=== PATIENT | male | born 1965 | race Caucasian/White ===

== ENCOUNTER 2019-10-21 00:04 | Inpatient (IN) ==
[2019-10-21] MEDS ORDERED: MULTI-VITAMIN INFUSION 10 ML, THIAMINE HCL 100 MG, FOLIC ACID 1 MG in SODIUM CHLORIDE 0... IV ONE (00:31)
[2019-10-21] MEDS ORDERED: LORazepam 2 MG/4 ML VIAL IV STA ×4 (00:31→02:23)
--- NOTE | 2019-10-21 00:33 | Emergency Department Note ---
Impression & Plan Delirium tremens, Hypertension, Alcohol withdrawal ED Provider Note Name: MYRA RIGN Age: 54 Sex: M Arrives Via: Ambulance Informant: Patient, EMS ED Provider: Alex Casarez MD Chief Complaint: Alcohol Withdrawal Impression: Delirium Tremens Alcohol Withdrawal Hypertension Medical Decision Makin yr old male alcoholic arrives for evaluation of worsening tremors and falling. Seen earlier in evening for fall and head injury from alcohol rehab f acility. CT head at that time negative and after Ativan apparently calmed down and sent back to rehab. He arrives back in ed via EMS as worsening confusion and falling. On evaluation patient is shaking, appears to be hallucinating, is tachy, is hypertensive and exhibiting evidence of DTs without seizure. Emergently given IV ativan, which had to be repeated multiple times to eventually calm patient down, along with Haldol as he was combative early on in course as I was unable to verbally deescalate nor re-direct the patient. The patient's combative behavior was risking a catastrophe. To protect the staff and the patient from harm it was necessary to chemically and physically restrain the patient. Labs without evidence that this is hepatic in nature. He continues being thrombocytopenic similar to earlier. Will hold off on repeat CT head as this was just done and negative and no report he hit head. Many repeat evaluations were done and patient still awake and periodically mumbling but no longer agitated and sats maintaining well. Prior Medical Record and Triage/Nursing Notes reviewed by Me Additional history obtained from record Differentials:Infection, hypoglycemia, electrolyte abnormalities, overdose, toxicologic, cardiac sources, intracerebral event, neurologic, trauma, as well as other pathologies. Vital Signs: reviewed and remarkable for HTN, Tachy Interventions: Saline Lock, Ativan 2mg IV x 5, Haldol 10mg IM Labs:Reviewed and remarkable for thrombocytopenia Imaging:Xray Results per my interpretation: Toe, left xray: no fracture/dislocation EKG:Per My Interpretation: Indication Withdrawal: NSR 80 bpm, qtc 459. No Ecto py. No Ischemia. Compared to EKG 10/20/19, no significant changes. Cardiac/Tele Monitoring: Cardiac Monitoring: An Order was placed for continuous cardiac monitoring. The monitor shows a rate of 80 with a normal sinus rhythm. Consults:Dr Onel Alvarez Hospitalist Plan: Disposition:Hospitalization. Condition: Fair Blood pressure:Elevated - Referred to Hospitalist Prescriptions:none PDMP: n/a History of Present Illness:Patient poor historian and difficult getting story as he is actively appearing to be withdrawing. 54 yr old male with history alcoholism who was here earlier in evening following fall and head injury. He was discharged back to Rehab facility from which he arrived. Since getting back he has been having worsening shaking, falls and confusion. Associated with multiple abrasions during falls. Patient notes his whole body hurts. He denies any new headache, neck pain, cp, sob, back pain, abdominal pain, leg swelling, nausea, vomiting, fevers, loss bowel/bladder control, nor other symptoms. Patient denies new medication use. He denies need for pain medication. He states trying to walk makes worse, but nothing makes better. Reportedly is on Folate and Thiamine at rehab facility. Per staff he has been at [facility] for 5 to 6 days. ROS: See above HPI for pertinent positives & negatives. A total of 10 systems reviewed and were otherwise negative. Past Medical History:Alcoholism, HTN, Insomnia Past Surgical History:Unknown - patientwithdrawing and poor historian Family History:Unknown - patient poor historian Social History:Currently in alcohol rehab, smoker, no reported drugs, unknown if employed. Home Medications:See Below Allergies:Pollen, Acetaminophen Vitals:Blood Pressure: 175/114, Pulse 89, RR 18, T 37C, O2 95% on RA Physical Exam: GENERAL: Patient is confused appearing and in minimal distress. Diffuse tremors/shakes, trying to get out of room, very unsteady on feet EYES: No scleral icterus, unremarkable pupils. ENT: Mucous membranes moist, no nasal congestion. NECK: No masses appreciated, nomeningismus, trachea is midline. RESPIRATORY: No dyspnea. Clear to auscultation and equal bilaterally. No wheeze, no rhonchi. CARDIOVASCULAR: Regular rate and rhythm.No murmurs, rubs, gallops appreciated. GASTROINTESTINAL: Abdomen soft, non-tender, no peritonitis.Bowel sounds positive.No masses appreciated. BACK: No midline tenderness, no CVA tenderness EXTREMITIES: Normal motion all extremities, no cyanosis, no edema. NEUROLOGIC: Confused, unclear if oriented, no acute motor or sensory deficits, no focal weakness, cranial nerves grossly intact. SKIN: No rash, no jaundice, no diaphoresis. PSYCH: Confused GCS: 15 ED Course: Times/Reassessments: multiple many evals, gradually calming down Critical Care: I have personally spent 45 minutes of critical care time in the direct management of this patient. Acute alcohol withdrawal with delirium. This was a life/limb threatening event. This 45 minutes is in excess of all separately billable procedures. 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 Required: No Beliefs That Will Affect Care: None Current Living Situation: Spouse current occupational status: employed current occupation: [employer] Other Information That Helps Us Care for You: No Feels Safe at Home: Yes Safety Concerns: Feels Safe At This Time Smoking Status: Current every day smoker Tobacco Type: cigarettes ; Cigarettes Per Day: 40 ; Do You Dip or Chew Tobacco: No ; Tobacco Cessation Education Requested by Patient: No Hx Alcohol Use: Yes Alcohol type: beer Hx Substance Use: No Allergies Allergies Allergy/AdvReac Type Severity Reaction Status Date / Time pollen extracts Allergy Intermediate ITCHY, Verified 10/21/19 01:09 WATERY EYES, SNEEZING, CONGESTION acetaminophen [From Tylenol] AdvReac Severe PER PT Verified 10/20/19 16:21 "LIVER DAMAGE" UNABLE TO TAKE Home Meds Home Medications Medication Instructions Recorded Confirmed amlodipine 5 mg PO QAM 10/20/19 10/21/19 atorvastatin [Lipitor] 40 mg PO QAM 10/20/19 10/21/19 diazepam [Valium] 10 mg PO TID 10/20/19 10/21/19 diazepam [Valium] See Rx Instructions .ROUTE .COMPLEX 10/20/19 10/21/19 doxepin 50 mg PO HS 10/20/19 10/21/19 escitalopram oxalate [Lexapro] 20 mg PO QAM 10/20/19 10/21/19 folic acid 1 mg PO DAILY 10/20/19 10/21/19 gabapentin [Neurontin] 300 mg PO BID 10/20/19 10/21/19 lisinopril 20 mg PO QAM 10/20/19 10/21/19 multivitamin 1 tab PO DAILY 10/20/19 10/21/19 thiamine HCl (vitamin B1) 100 mg PO DAILY 10/20/19 10/21/19 meloxicam [Mobic] 15 mg PO DAILY 10/21/19 10/21/19 Previous Rx's Medication Instructions Recorded lactulose 20 gm PO TID #30 ea 10/20/19 Results & Data (ED) Vital Signs Vital Signs - 24 hr 10/21/19 00:12 10/21/19 00:56 10/21/19 02:00 Temperature 37 C Temperature Source Oral Pulse Rate 89 Pulse Rate [Finger] 85 97 H Respiratory Rate 18 20 20 Respiratory Effort / Characteristics Non-Labored Spontaneous Non-Labored Spontaneous Respiratory Depth Normal Normal Blood Pressure 175/114 H Blood Pressure [Right Arm] 157/100 H 155/88 H Blood Pressure Mean 134 Blood Pressure Mean [Right Arm] 119 110 Pulse Oximetry 95 95 100 Oxygen Delivery Method Room Air Room Air Room Air Sepsis Recent Fever Within 48 Hours No Sepsis New/Unexplained Change in Mental Status No Sepsis Action Taken by Nursing No Action Required 10/21/19 03:00 Temperature Temperature Source Pulse Rate Pulse Rate [Finger] 89 Respiratory Rate 20 Respiratory Effort / Characteristics Respiratory Depth Blood Pressure Blood Pressure [Right Arm] 154/93 H Blood Pressure Mean Blood Pressure Mean [Right Arm] 113 Pulse Oximetry 99 Oxygen Delivery Method Room Air Sepsis Recent Fever Within 48 Hours Sepsis New/Unexplained Change in Mental Status Sepsis Action Taken by Nursing Laboratory Data Result diagrams: 10/21/19 00:46 10/21/19 00:46 Lab Results 10/21/19 10/21/19 10/21/19 Range/Units 00:46 00:46 00:46 WBC 4.01 L (4.8-10.8) K/uL RBC 4.66 L (4.7-6.1) M/uL Hgb 14.8 (14.0-18.0) g/dL Hct 42.6 (42-52) % MCV 91.4 (80-100) fL MCH 31.8 (25-34) pg MCHC 34.7 (32-36) g/dL RDW Std Deviation 51.6 H (36.4-46.3) fL RDW Coeff of Usama 15.4 H (11.5-14.5) % Plt Count 76 L (130-400) K/uL MPV 10.6 H (7.4-10.4) fL Immature Gran % (Auto) 0.0 % Neut % (Auto) 51.7 % Lymph % (Auto) 30.9 % [place] % (Auto) 12.2 % Eos % (Auto) 5.0 % Baso % (Auto) 0.2 % Neut # (Auto) 2.07 (1.4-6.5) K/uL Lymph # (Auto) 1.24 (1.2-3.4) K/uL [place] # (Auto) 0.49 (0.11-0.59) K/uL Eos # (Auto) 0.20 (0-0.5) K/uL Baso # (Auto) 0.01 (0-0.2) K/uL Immature Gran # (Auto) 0.00 (0.00-0.02) K/uL Giant Platelets 2+ Sodium 136 (136-145) mmol/L Potassium 3.1 L (3.5-5.1) mmol/L Chloride 105 (98-107) mmol/L Carbon Dioxide 22 (21-32) mmol/L Anion Gap 9.0 (3-11) BUN 9 D (7-18) mg/dl Creatinine 0.82 D (0.6-1.4) mg/dl Est Cr Clr Drug Dosing 77.7 ml/min Est GFR ( Amer) 114.6 Est GFR (Non-Af Amer) 98.9 BUN/Creatinine Ratio 11.4 (10-20) Glucose 75 (70-99) mg/dl Lactate (0.4-2.0) mmol/L Calcium 9.0 (8.5-10.1) mg/dl Magnesium 2.0 (1.8-2.4) mg/dl Total Bilirubin 1.6 H (0.2-1) mg/dl Direct Bilirubin 0.5 H (0-0.2) mg/dl AST 173 H (15-37) U/L ALT 100 H (12-78) U/L Alkaline Phosphatase 70 (45-117) U/L Ammonia (11-32) umol/L Total Creatine Kinase 734 H (39-308) U/L Troponin I < 0.015 (0-0.045) ng/ml Total Protein 7.8 (6.4-8.2) gm/dl Albumin 3.8 (3.4-5.0) gm/dl Urine Color Urine Appearance (Clear) Urine pH (4.5-7.5) Ur Specific [place] (1.000-1.030) Urine Protein (Negative) Urine Glucose (UA) (Negative) Urine Ketones (Negative) Urine Blood (Negative) Urine Nitrite (Negative) Urine Bilirubin (Negative) Urine Urobilinogen (Negative) Ur Leukocyte Esterase (Negative) Urine Opiates Screen (Neg) Ur Methadone, Qual (Neg) Urine Barbiturates (Neg) Ur Phencyclidine (PCP) (Neg) U Amphetamin/Meth Scrn (Neg) MDMA (Ecstasy) Screen (Neg) U Benzodiazepines Scrn (Neg) Ur Cocaine Metabolite (Neg) U Marijuana (THC) Screen (Neg) Ethyl Alcohol mg/dL < 3.0 (0-3) mg/dl 10/21/19 10/21/19 10/21/19 Range/Units 00:46 00:46 01:40 WBC (4.8-10.8) K/uL RBC (4.7-6.1) M/uL Hgb (14.0-18.0) g/dL Hct (42-52) % MCV (80-100) fL MCH (25-34) pg MCHC (32-36) g/dL RDW Std Deviation (36.4-46.3) fL RDW Coeff of Usama (11.5-14.5) % Plt Count (130-400) K/uL MPV (7.4-10.4) fL Immature Gran % (Auto) % Neut % (Auto) % Lymph % (Auto) % [place] % (Auto) % Eos % (Auto) % Baso % (Auto) % Neut # (Auto) (1.4-6.5) K/uL Lymph # (Auto) (1.2-3.4) K/uL [place] # (Auto) (0.11-0.59) K/uL Eos # (Auto) (0-0.5) K/uL Baso # (Auto) (0-0.2) K/uL Immature Gran # (Auto) (0.00-0.02) K/uL Giant Platelets Sodium (136-145) mmol/L Potassium (3.5-5.1) mmol/L Chloride (98-107) mmol/L Carbon Dioxide (21-32) mmol/L Anion Gap (3-11) BUN (7-18) mg/dl Creatinine (0.6-1.4) mg/dl Est Cr Clr Drug Dosing ml/min Est GFR ( Amer) Est GFR (Non-Af Amer) BUN/Creatinine Ratio (10-20) Glucose (70-99) mg/dl Lactate 1.4 (0.4-2.0) mmol/L Calcium (8.5-10.1) mg/dl Magnesium (1.8-2.4) mg/dl Total Bilirubin (0.2-1) mg/dl Direct Bilirubin (0-0.2) mg/dl AST (15-37) U/L ALT (12-78) U/L Alkaline Phosphatase (45-117) U/L Ammonia 32.0 (11-32) umol/L Total Creatine Kinase (39-308) U/L Troponin I (0-0.045) ng/ml Total Protein (6.4-8.2) gm/dl Albumin (3.4-5.0) gm/dl Urine Color Yellow Urine Appearance Clear (Clear) Urine pH 6.5 (4.5-7.5) Ur Specific [place] 1.014 (1.000-1.030) Urine Protein Negative (Negative) Urine Glucose (UA) Negative (Negative) Urine Ketones 1+ H (Negative) Urine Blood Negative (Negative) Urine Nitrite Negative (Negative) Urine Bilirubin Negative (Negative) Urine Urobilinogen Negative (Negative) Ur Leukocyte Esterase Negative (Negative) Urine Opiates Screen (Neg) Ur Methadone, Qual (Neg) Urine Barbiturates (Neg) Ur Phencyclidine (PCP) (Neg) U Amphetamin/Meth Scrn (Neg) MDMA (Ecstasy) Screen (Neg) U Benzodiazepines Scrn (Neg) Ur Cocaine Metabolite (Neg) U Marijuana (THC) Screen (Neg) Ethyl Alcohol mg/dL (0-3) mg/dl 10/21/19 Range/Units 01:40 WBC (4.8-10.8) K/uL RBC (4.7-6.1) M/uL Hgb (14.0-18.0) g/dL Hct (42-52) % MCV (80-100) fL MCH (25-34) pg MCHC (32-36) g/dL RDW Std Deviation (36.4-46.3) fL RDW Coeff of Usama (11.5-14.5) % Plt Count (130-400) K/uL MPV (7.4-10.4) fL Immature Gran % (Auto) % Neut % (Auto) % Lymph % (Auto) % [place] % (Auto) % Eos % (Auto) % Baso % (Auto) % Neut # (Auto) (1.4-6.5) K/uL Lymph # (Auto) (1.2-3.4) K/uL [place] # (Auto) (0.11-0.59) K/uL Eos # (Auto) (0-0.5) K/uL Baso # (Auto) (0-0.2) K/uL Immature Gran # (Auto) (0.00-0.02) K/uL Giant Platelets Sodium (136-145) mmol/L Potassium (3.5-5.1) mmol/L Chloride (98-107) mmol/L Carbon Dioxide (21-32) mmol/L Anion Gap (3-11) BUN (7-18) mg/dl Creatinine (0.6-1.4) mg/dl Est Cr Clr Drug Dosing ml/min Est GFR ( Amer) Est GFR (Non-Af Amer) BUN/Creatinine Ratio (10-20) Glucose (70-99) mg/dl Lactate (0.4-2.0) mmol/L Calcium (8.5-10.1) mg/dl Magnesium (1.8-2.4) mg/dl Total Bilirubin (0.2-1) mg/dl Direct Bilirubin (0-0.2) mg/dl AST (15-37) U/L ALT (12-78) U/L Alkaline Phosphatase (45-117) U/L Ammonia (11-32) umol/L Total Creatine Kinase (39-308) U/L Troponin I (0-0.045) ng/ml Total Protein (6.4-8.2) gm/dl Albumin (3.4-5.0) gm/dl Urine Color Urine Appearance (Clear) Urine pH (4.5-7.5) Ur Specific [place] (1.000-1.030) Urine Protein (Negative) Urine Glucose (UA) (Negative) Urine Ketones (Negative) Urine Blood (Negative) Urine Nitrite (Negative) Urine Bilirubin (Negative) Urine Urobilinogen (Negative) Ur Leukocyte Esterase (Negative) Urine Opiates Screen Neg (Neg) Ur Methadone, Qual Neg (Neg) Urine Barbiturates Neg (Neg) Ur Phencyclidine (PCP) Neg (Neg) U Amphetamin/Meth Scrn Neg (Neg) MDMA (Ecstasy) Screen Neg (Neg) U Benzodiazepines Scrn Pos H (Neg) Ur Cocaine Metabolite Neg (Neg) U Marijuana (THC) Screen Pos H (Neg) Ethyl Alcohol mg/dL (0-3) mg/dl Administered Medications Lorazepam (Ativan) 2 mg in 4 mls @ 4 mls/min IV UD PRN; Protocol PRN Reason: EtOH Withdrawl AWSS Score 8,9 Stop: 11/20/19 03:33 Last Admin: 10/21/19 04:55 Dose: 4 mls/min Documented by: [id number] Discontinued Medications Gabapentin (Neurontin) 1,200 mg PO NOW STA Stop: 10/21/19 03:02 Last Admin: 10/21/19 04:03 Dose: 1,200 mg Documented by: [id number] Haloperidol Lactate (Haldol) 10 mg IM NOW STA Stop: 10/21/19 01:41 Last Admin: 10/21/19 01:45 Dose: 10 mg Documented by: [id number] Lorazepam (Ativan) 2 mg in 4 mls @ 4 mls/min IV NOW STA Stop: 10/21/19 00:32 Last Admin: 10/21/19 00:45 Dose: 4 mls/min Documented by: [id number] Multivitamins 10 ml/ Thiamine HCl 100 mg/ Folic Acid 1 mg/Sodium Chloride 1,011.2 mls @ 1,011.2 mls/hr IV .Q1H ONE Stop: 10/21/19 01:30 Last Infusion: 10/21/19 02:09 Dose: 0 mls/hr Documented by: [id number] Admin: 10/21/19 00:50 Dose: 1,011.2 mls/hr Documented by: [id number] Lorazepam (Ativan) 2 mg in 4 mls @ 4 mls/min IV NOW STA Stop: 10/21/19 01:18 Last Admin: 10/21/19 01:21 Dose: 4 mls/min Documented by: [id number] Lorazepam (Ativan) 2 mg in 4 mls @ 4 mls/min IV NOW STA Stop: 10/21/19 01:41 Last Admin: 10/21/19 01:45 Dose: 4 mls/min Documented by: [id number] Lorazepam (Ativan) 2 mg in 4 mls @ 4 mls/min IV NOW STA Stop: 10/21/19 02:24 Last Admin: 10/21/19 02:42 Dose: 4 mls/min Documented by: [id number] Sodium Chloride (Nss 1000ml) 1,000 mls @ 999 mls/hr IV .Q1H1M ONE Stop: 10/21/19 03:23 Last Infusion: 10/21/19 03:46 Dose: 0 mls/hr Documented by: [id number] Admin: 10/21/19 02:45 Dose: 999 mls/hr Documented by: [id number] Potassium Chloride (Klor-Con Pwd) 40 meq PO NOW STA Stop: 10/21/19 02:58 Last Admin: 10/21/19 04:04 Dose: 40 meq Documented by: [id number] Discharge Plan Visit Data *Final* Discharge Date/Time: 10/21/19 04:19 Chief Complaint: Fall Stated Complaint: Fall, abnormal Labs ED Provider: Alex Casarez Discharge Problem: Delirium tremens, Hypertension, Alcohol withdrawal Patient Disposition: Admitted As Inpatient Discharge Instructions Interventions: ED Discharge Assessment Last Done: 10/21/19 04:19 Discharge Problem: Hypertension Qualifiers: Hypertension type: essential hypertension Qualified Code(s): I10 - Essential (primary) hypertension Alcohol withdrawal Qualifiers: Complication of substance-induced condition: with delirium Qualified Code(s): F10.231 - Alcohol dependence with withdrawal delirium
[2019-10-21 01:07] LABS: Hematocrit (blood only) 42.6 % (42-52); Hemoglobin 14.8 g/dL (14.0-18.0); Mean Corpuscular Hemoglobin 31.8 pg (25-34); Mean Corpuscular Hgb Conc 34.7 g/dL (32-36); Mean Corpuscular Volume 91.4 fL (80-100); RDW Coefficient of Variation 15.4 % (11.5-14.5); RDW Standard Deviation 51.6 fL (36.4-46.3); Red Blood Count 4.66 M/uL (4.7-6.1); White Blood Count 4.01 K/uL (4.8-10.8)
[2019-10-21 01:11] LABS: Mean Platelet Volume 10.6 fL (7.4-10.4); Platelet Count 76 K/uL (130-400)
[2019-10-21 01:32] LABS: Basophils # (auto) 0.01 K/uL (0-0.2); Basophils % (auto) 0.2 %; Giant Platelets 2+; Lymphocytes # (auto) 1.24 K/uL (1.2-3.4); Lymphocytes % (auto) 30.9 %; Monocytes # (auto) 0.49 K/uL (0.11-0.59); Monocytes % (auto) 12.2 %; Neutrophils # (auto) 2.07 K/uL (1.4-6.5); Neutrophils % (auto) 51.7 %
[2019-10-21 01:35] LABS: Alanine Aminotransferase 100 U/L (12-78); Albumin Level 3.8 gm/dl (3.4-5.0); Alkaline Phosphatase 70 U/L (45-117); Aspartate Aminotransferase 173 U/L (15-37); BUN Creatinine Ratio 11.4 (10-20); Bilirubin Direct 0.5 mg/dl (0-0.2); Bilirubin,Total 1.6 mg/dl (0.2-1); Blood Urea Nitrogen 9 mg/dl (7-18); Carbon Dioxide 22 mmol/L (21-32); Chloride 105 mmol/L (98-107); Creatine Kinase 734 U/L (39-308); Creatinine Clr Calc Pharmacy 77.7 ml/min; Est GFR (African American) 114.6; Est GFR (Non-African American) 98.9; Glucose 75 mg/dl (70-99); Potassium 3.1 mmol/L (3.5-5.1); Sodium 136 mmol/L (136-145); Total Protein 7.8 gm/dl (6.4-8.2); Troponin I < 0.015 ng/ml (0-0.045)
[2019-10-21] MEDS ORDERED: HALOPERIDOL LACTATE 5 MG/ML 1 ML VIAL IM STA (01:40)
[2019-10-21 01:56] LABS: Appearance Urine Clear (Clear); Bilirubin Urine Negative (Negative); Blood Urine Negative (Negative); Color Urine Yellow; Glucose Urine UA Negative (Negative); Ketones Urine 1+ (Negative); Leukocyte Esterase Urine Negative (Negative); Nitrite Urine Negative (Negative); Protein Urine Negative (Negative); Specific Gravity Urine 1.014 (1.000-1.030); Urobilinogen Urine Negative (Negative); pH Urine 6.5 (4.5-7.5)
[2019-10-21 02:15] LABS: Amphetamines+Metham, Urine Neg (Neg); Barbiturates, Urine Neg (Neg); Benzodiazepine, Urine Pos (Neg); Cocaine, Urine Neg (Neg); MDMA (Ecstacy), Urine Neg (Neg); Methadone, Urine Neg (Neg); Opiate, Urine Neg (Neg); Phencyclidine, Urine Neg (Neg)
[2019-10-21] MEDS ORDERED: SODIUM CHLORIDE 0.9% 1000ML 1,000 ML IV ONE (02:23)
[2019-10-21] MEDS ORDERED: POTASSIUM CHLORIDE PWD 20 MEQ PACK PO STA (02:57)
[2019-10-21] MEDS ORDERED: GABAPENTIN 600 MG TAB PO STA (03:01)
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
[2019-10-21] MEDS ORDERED: ATIVAN IV ALCOHOL WITHDRAWL IV PRN (03:34)
[2019-10-21] MEDS ORDERED: LORazepam 3 MG/6 ML VIAL IV PRN (03:34)
[2019-10-21] MEDS ORDERED: LORazepam 2 MG/4 ML VIAL IV PRN (03:34)
[2019-10-21] MEDS ORDERED: LORazepam 1 MG/2 ML VIAL IV PRN (03:34)
[2019-10-21] MEDS ORDERED: GABAPENTIN 1200MG ALCOHOL WITHDRAWAL LOAD PO STA (04:39)
[2019-10-21] MEDS ORDERED: PROMETHAZINE HCL 12.5 MG in SODIUM CHLORIDE 0.9% 50 ML IV PRN (04:39)
[2019-10-21] MEDS ORDERED: OXYCODONE HCL IR 5 MG TAB (IMMEDIATE RELEASE) PO PRN (04:39)
[2019-10-21] MEDS ORDERED: ACETAMINOPHEN 325 MG TAB PO PRN (04:39)
[2019-10-21] MEDS ORDERED: IPRATROPIUM BROMIDE NEB SOLN 0.02% 2.5 ML VIAL INH PRN (05:15)
[2019-10-21] MEDS ORDERED: LEVALBUTEROL 1.25MG/0.5ML NEB INH PRN (05:15)
[2019-10-21] MEDS ORDERED: XOPENEX/ATROVENT 1.25mg/0.5MG NEB COMBO NEB PRN (05:15)
[2019-10-21] MEDS ORDERED: POTASSIUM CHLORIDE 40 MEQ in SODIUM CHLORIDE 0.9% 1000ML 1,000 ML IV ONE (05:16)
[2019-10-21] MEDS: lisinopriL 20 MG TAB PO SCH ×2 (07:12→07:45)
[2019-10-21] MEDS: LACTULOSE SYRUP 20 GM/30 ML UDC PO SCH ×2 (07:45→20:29)
[2019-10-21] MEDS: MULTIVITAMIN TAB PO SCH (07:45)
[2019-10-21] MEDS: ESCITALOPRAM OXALATE 20 MG TAB PO SCH (07:45)
[2019-10-21] MEDS: THIAMINE HCL 100 MG TAB PO SCH (07:45)
[2019-10-21] MEDS: FOLIC ACID 1 MG TAB PO SCH (07:45)
[2019-10-21] MEDS: GABAPENTIN 600 MG TAB PO SCH ×3 (07:46→23:04)
[2019-10-21] MEDS: AMLODIPINE BESYLATE 5 MG TAB PO SCH (07:46)
--- NOTE | 2019-10-21 08:28 | XRay Report ---
XR chest 1V portable CLINICAL HISTORY: wheeze COMPARISON STUDY: No previous studies for comparison. FINDINGS: Lung volumes are normal. Lungs are clear. There is no pneumothorax or pleural effusion. Car diac size is normal. Mediastinal contours are normal. There is no evidence for pulmonary edema. IMPRESSION: No acute cardiopulmonary findings. ACT 112: Negative or not required by law. Electronically signed by: Davon Raines M.D. 10/21/2019 8:26 AM
--- NOTE | 2019-10-21 08:58 | XRay Report ---
XR toe(s) LT min 2V CLINICAL HISTORY: left great toe abrasion COMPARISON: None FINDINGS: Alignment of the left first toe is anatomic. There is no acute fracture. No osseous lesion is noted. There is mild osteoarthritis of the left first metatarsophalangeal joint. IMPRESSION: No acute fracture or dislocation within the left first toe. ACT 112: Negative or not required by law. Electronically signed by: Davon Raines M.D. 10/21/2019 8:57 AM
[2019-10-21] MEDS ORDERED: LACTULOSE SYRUP 20 GM/30 ML UDC PO SCH (09:00)
[2019-10-21] MEDS ORDERED: lisinopriL 20 MG TAB PO SCH (09:00)
[2019-10-21] MEDS ORDERED: levETIRAcetam 500 MG TAB PO SCH (09:00)
[2019-10-21] MEDS ORDERED: LORazepam 0.5 MG/1 ML VIAL IV PRN (10:41)
--- NOTE | 2019-10-21 10:53 | Ultrasound Report ---
US liver CLINICAL HISTORY: Abnormal liver function tests. COMPARISON STUDY: No previous studies for comparison. FINDINGS: This exam is compromised by suboptimal penetration. Hepatic echogenicity is increased. A hy poechoic focus adjacent to the gallbladder favors fatty sparing. There is no biliary ductal dilatatio n. The common bile duct measures 5 mm in caliber. The pancreas body is normal. Head and tail are part ially obscured. There are no gallstones. There is no gallbladder wall thickening. No right hydronephr osis is present. IMPRESSION: 1. Increased hepatic echogenicity suggestive of fatty infiltration. Hypoechoic focus adjacent to the gallbladder fossa which favors fatty sparing. Exam mildly compromised by suboptimal penetration. 2. No gallstones or biliary ductal dilatation. ACT 112: Negative or not required by law. Electronically signed by: Davon Raines M.D. 10/21/2019 10:51 AM
[2019-10-21] MEDS: levETIRAcetam 500 MG in 0.9 % SODIUM CHLORIDE 100 ML IV SCH ×2 (10:54→22:37)
--- NOTE | 2019-10-21 14:39 | Gastrointestinal Consultation ---
Date of Consultation October 21, 2019 Assessment & Plan (1) Alcohol withdrawal: (2) Abnormal LFTs: (3) Thrombocytopenia: (4) Fatty liver: ETOH withdrawal on treatment, his LFTs and labs could certainly indicate the beginning of cirrhosis, would benefit from a liver biopsy as an outpatient. Recs: 1. supportive care, continue ETOH withdrawal treatment 2. will need outpatient liver biopsy 3.will need screening colonoscopy as an outpatient 4.follow up with me in the office in 1-2 weeks after discharge Thank you for allowing me to participate in the care of this patient History of Present Illness Attending Physician: Arvin Lozano MD 54 yo male with hx ETOH abuse here with ETOH withdrawal. US showed fatty liver, labs showing thromobocytopenia and transaminitis. No evidence for biliary disease. Patient is on ETOH withdrawal tx protocol and has been having tremors, not awake enough to communicate at this time. Was in [facility] rehab earlier for ETOH abuse. labs reviewed. Allergies Allergy/AdvReac Type Severity Reaction Status Date / Time pollen extracts Allergy Intermediate ITCHY, Verified 10/21/19 01:09 WATERY EYES, SNEEZING, CONGESTION acetaminophen [From Tylenol] AdvReac Severe PER PT Verified 10/20/19 16:21 "LIVER DAMAGE" UNABLE TO TAKE Home Medications Home Medications Medication Instructions Recorded Confirmed Type amlodipine 5 mg PO QAM 10/20/19 10/21/19 History atorvastatin [Lipitor] 40 mg PO QAM 10/20/19 10/21/19 History diazepam [Valium] 10 mg PO TID 10/20/19 10/21/19 History diazepam [Valium] See Rx Instructions .ROUTE .COMPLEX 10/20/19 10/21/19 History doxepin 50 mg PO HS 10/20/19 10/21/19 History escitalopram oxalate [Lexapro] 20 mg PO QAM 10/20/19 10/21/19 History folic acid 1 mg PO DAILY 10/20/19 10/21/19 History gabapentin [Neurontin] 300 mg PO BID 10/20/19 10/21/19 History lactulose 20 gm PO TID #30 ea 10/20/19 10/21/19 Rx lisinopril 20 mg PO QAM 10/20/19 10/21/19 History multivitamin 1 tab PO DAILY 10/20/19 10/21/19 History thiamine HCl (vitamin B1) 100 mg PO DAILY 10/20/19 10/21/19 History meloxicam [Mobic] 15 mg PO DAILY 10/21/19 10/21/19 History Patient History Medical History Hypertension Insomnia Social History Preferred Language: Kiswahili Communication Ability: Effective Windsurfing Instructor Required: No Beliefs That Will Affect Care: None Current Living Situation: Spouse current occupational status: employed current occupation: [employer] Other Information That Helps Us Care for You: No Feels Safe at Home: Yes Safety Concerns: Feels Safe At This Time Smoking Status: Current every day smoker Tobacco Type: cigarettes ; Cigarettes Per Day: 40 ; Do You Dip or Chew Tobacco: No ; Tobacco Cessation Education Requested by Patient: No Hx Alcohol Use: Yes Alcohol type: beer Hx Substance Use: No Review of Systems Constitutional: no fever, no chills and no weight loss Eyes: as per Subjective / HPI Ear, Nose, Mouth, Throat: as per Subjective / HPI Respiratory: no dyspnea and no dyspnea on exertion Cardiovascular: no chest pain and no palpitations Gastrointestinal: as per Subjective / HPI Musculoskeletal: no joint pain and no swelling Integumentary: no rash and no lesions Neurologic: no numbness and no paresthesia Psychiatric: no depression and no anxiety Endocrine: no fatigue Hematologic / Lymphatic: no easy bleeding and no easy bruising Physical Exam Constitutional: WD/WN, vitals as above Eyes: EOM intact bilaterally Neck: normal visual inspection Respiratory: normal respiratory effort, lungs clear to auscultation Cardiovascular: RRR, no murmur, no edema Gastrointestinal (Abdomen): Inspection/Auscultation: abdomen normal to inspection; abdomen not distended Percussion/Palpation: abdomen soft; abdomen nontender and no hepatosplenomegaly Musculoskeletal: Extremities: no cyanosis Gait: normal gait Skin: no rashes, warm and dry Neurologic: moves all extremities Psychiatric: A+Ox3, euthymic affect Results & Data ([facility]) Vital Signs (Past 12 Hours) Vital Signs Temp Pulse Pulse Pulse Resp BP Pulse Ox 10/21/19 11:36 36.7 C 79 18 131/88 94 10/21/19 08:00 78 10/21/19 07:22 36.4 C L 72 16 152/89 H 93 10/21/19 04:39 10/21/19 04:35 36.4 C L 94 H 22 162/91 H 96 10/21/19 04:00 99 H 24 157/96 H 100 10/21/19 03:00 89 20 154/93 H 99 Pulse Ox 10/21/19 11:36 10/21/19 08:00 10/21/19 07:22 10/21/19 04:39 96 10/21/19 04:35 10/21/19 04:00 10/21/19 03:00 PG Care Time/CCT Total # of Minutes Spent Total Time Spent with Patient: Total time spent is greater than 50% in coordination of care (as documented) at patient's floor/unit and/or counseling patient: Coding Level of Care Code 04235 Inpt Consult Level 4 Diagnoses Alcohol withdrawal F10.239 Abnormal LFTs R94.5 Thrombocytopenia D69.6 Fatty liver K76.0
--- NOTE | 2019-10-21 19:19 | Communication Note ---
Date of Service: October 21, 2019 Chart reviewed Patient seen at the bedside Patient is mostly sleeping, awakens occasionally, answers some questions Denies pain, shortness of breath Review systems difficult to assess due to cognitive status Patient is lethargic Just received Ativan in the ER Not in distress, or muscle use Clear breath sounds bilaterally no crackles or wheezes Normal rate regular rhythm No leg edema Positive skin tear right great toe next All labs reviewed Alcohol withdrawal Continue alcohol withdrawal taper, gabapentin protocol taper Alcoholic liver cirrhosis, with elevated ammonia Ammonia level normal GI will be consulted Arvin Lozano MD
[2019-10-22 06:20] LABS: Hematocrit (blood only) 42.5 % (42-52); Hemoglobin 14.8 g/dL (14.0-18.0); Mean Corpuscular Hemoglobin 32.5 pg (25-34); Mean Corpuscular Hgb Conc 34.8 g/dL (32-36); Mean Corpuscular Volume 93.2 fL (80-100); RDW Coefficient of Variation 15.6 % (11.5-14.5); RDW Standard Deviation 53.3 fL (36.4-46.3); Red Blood Count 4.56 M/uL (4.7-6.1); White Blood Count 3.91 K/uL (4.8-10.8)
[2019-10-22 06:23] LABS: Mean Platelet Volume 11.4 fL (7.4-10.4); Platelet Count 82 K/uL (130-400)
[2019-10-22 06:38] LABS: Basophils # (auto) 0.01 K/uL (0-0.2); Basophils % (auto) 0.3 %; Eosinophils # (auto) 0.21 K/uL (0-0.5); Eosinophils % (auto) 5.4 %; Giant Platelets 3+; Immature Granulocytes # (auto) 0.01 K/uL (0.00-0.02); Immature Granulocytes % (auto) 0.3 %; Lymphocytes # (auto) 1.13 K/uL (1.2-3.4); Lymphocytes % (auto) 28.9 %; Monocytes % (auto) 10.2 %; Neutrophils # (auto) 2.15 K/uL (1.4-6.5); Neutrophils % (auto) 54.9 %
[2019-10-22 06:54] LABS: Albumin Level 3.4 gm/dl (3.4-5.0); BUN Creatinine Ratio 10.5 (10-20); Calcium 8.7 mg/dl (8.5-10.1); Creatinine Clr Calc Pharmacy 102.7 ml/min; Est GFR (African American) 128.5; Est GFR (Non-African American) 110.9; Potassium 3.4 mmol/L (3.5-5.1)
[2019-10-22 06:57] LABS: Albumin Globulin Ratio 0.9 (0.9-2); Globulin 3.9 gm/dl (2.5-4.0); Total Protein 7.3 gm/dl (6.4-8.2)
--- NOTE | 2019-10-22 07:47 | Electrocardiogram Report ---
Test Reason : Blood Pressure : / mmHG Vent. Rate : 080 BPM Atrial Rate : 080 BPM P-R Int : 160 ms QRS Dur : 096 ms QT Int : 398 ms P-R-T Axes : 071 -39 048 degrees QTc Int : 459 ms Normal sinus rhythm Left axis deviation Septal infarct , age undetermined Abnormal ECG When compared with ECG of 20-OCT-2019 16:00, Septal infarct is now Present Confirmed by Olu Tobar ([id number]) on 10/22/2019 7:46:58 AM Referred By: REFERRED SELF Confirmed By:Olu Tobar
[2019-10-22] MEDS: LACTULOSE SYRUP 20 GM/30 ML UDC PO SCH ×2 (08:10→19:52)
[2019-10-22] MEDS: levETIRAcetam 500 MG TAB PO SCH ×2 (08:11→19:51)
[2019-10-22] MEDS: AMLODIPINE BESYLATE 5 MG TAB PO SCH (08:11)
[2019-10-22] MEDS: MULTIVITAMIN TAB PO SCH (08:11)
[2019-10-22] MEDS: FOLIC ACID 1 MG TAB PO SCH (08:11)
[2019-10-22] MEDS: ESCITALOPRAM OXALATE 20 MG TAB PO SCH (08:11)
[2019-10-22] MEDS: GABAPENTIN 600 MG TAB PO SCH ×2 (08:11→15:50)
[2019-10-22] MEDS: THIAMINE HCL 100 MG TAB PO SCH (08:11)
[2019-10-22] MEDS: lisinopriL 20 MG TAB PO SCH (08:11)
[2019-10-22] MEDS ORDERED: POTASSIUM CHLORIDE 20 MEQ TABCR PO STA (08:30)
--- NOTE | 2019-10-22 13:11 | Hospitalist Progress Note ---
Date of Service October 22, 2019 Assessment & Plan (1) Alcohol withdrawal: 55-year-old male with history of hypertension, COPD, anxiety, alcoholism, smoking, traumatic brain injury with seizure, Presenting with alcohol withdrawal symptoms next Alcohol withdrawal, alcoholism Patient was admitted to [facility] alcohol rehab last Wednesday Noted to have symptoms of possible alcohol withdrawal Placed on alcohol drip protocol, including gabapentin taper Patient is awake alert oriented x3 today No signs of overt withdrawal Continue gabapentin taper Monitor closely Status post falls, dizziness Patient reports dizziness, described as room spinning around him, [facility], leading to multiple episodes of falls Denies any pain today, dizziness also resolved CT head: No acute process Likely multifactorial: Alcohol withdrawal, elevated ammonia, dehydration Patient on alcohol drip protocol, management of elevated ammonia level, also received IV fluids Will need PT and OT evaluation Monitor closely Abnormal LFTs, thrombocytopenia, hyperammonemia possible alcoholic cirrhosis LFTs stable, platelet count stable Ammonia level improved Continue lactulose 20 mg twice daily GI consulted, appreciate the recommendations Supportive care for now Will need outpatient liver biopsy Will need screening colonoscopy as an outpatient Follow-up with GI Dr. Ferreira in 1 to 2 weeks post discharge Hypertension Continue lisinopril and amlodipine Monitor closely COPD Not in exacerbation Continue to monitor Seizure disorder, history of traumatic brain injury on outpatient Keppra Rx, ? Compliance Continue Keppra 500 mg twice a day Anxiety/mood disorder Patient denies anxiety or depression symptoms Smoker Severity cessation Declines nicotine patch DVT prophylaxis. SCDs RE thrombocytopenia Full code Disposition Pending PT and OT evaluation ordered Possible [facility] Admission and Anticipated Discharge Date Admission Date: October 21, 2019 Subjective Follow-up for alcohol withdrawal, elevated ammonia level, possible alcohol liver cirrhosis No acute events overnight per RN Jeannette Seen sitting up in bed, comfortable, not in distress, awake and alert, oriented x3 Not in distress States he feels improved today compared to yesterday Denies headache, dizziness, neurologic symptoms Denies chest pain, shortness of breath, palpitations No abdominal pain, nausea Denies tremors, anxiety, hallucinations No other symptoms Review of Systems Review of Systems: All systems reviewed & are unremarkable except as noted in HPI & below Physical Exam Physical Exam: General- oriented x 3, not in distress, speaks in sentences with no effort or accessory muscle use Eyes- anicteric Neck- no JVD Lungs- clear breath sounds bilaterally, no rales/wheezes Heart- normal rate, regular rhythm; no murmurs Abdomen- normal bowel sounds, nondistended, soft, nontender Extremities- no pretibial edema, no calf tenderness No tremors Right great toe: Skin tear healing well No signs of infection Neuro- alert, oriented x 3; no gross focal neurologic deficits Skin- warm & dry Results & Data Results & Data ([facility]) Vital Signs (Past 12 Hours) Vital Signs Temp Pulse Pulse Resp BP Pulse Ox Pulse Ox 10/22/19 10:55 36.8 C 77 18 155/90 H 91 10/22/19 08:00 69 10/22/19 07:14 36.8 C 73 20 166/93 H 94 10/22/19 04:39 95 10/22/19 04:00 36.8 C 78 18 153/91 H 95 Laboratory Results Laboratory Results - last 24 hr 10/22/19 10/22/19 05:50 05:50 WBC 3.91 L RBC 4.56 L Hgb 14.8 Hct 42.5 MCV 93.2 MCH 32.5 MCHC 34.8 RDW Std Deviation 53.3 H RDW Coeff of Usama 15.6 H Plt Count 82 L MPV 11.4 H Immature Gran % (Auto) 0.3 Neut % (Auto) 54.9 Lymph % (Auto) 28.9 [place] % (Auto) 10.2 Eos % (Auto) 5.4 Baso % (Auto) 0.3 Neut # (Auto) 2.15 Lymph # (Auto) 1.13 L [place] # (Auto) 0.40 Eos # (Auto) 0.21 Baso # (Auto) 0.01 Immature Gran # (Auto) 0.01 Giant Platelets 3+ Sodium 139 Potassium 3.4 L Chloride 108 H Carbon Dioxide 21 Anion Gap 10.0 BUN 6 L Creatinine 0.62 Est Cr Clr Drug Dosing 102.7 Est GFR ( Amer) 128.5 Est GFR (Non-Af Amer) 110.9 BUN/Creatinine Ratio 10.5 Glucose 69 L Calcium 8.7 Total Bilirubin 2.0 H AST 187 H ALT 120 H Alkaline Phosphatase 67 Total Protein 7.3 Albumin 3.4 Globulin 3.9 Albumin/Globulin Ratio 0.9
[2019-10-23] MEDS: GABAPENTIN 600 MG TAB PO SCH ×2 (05:15→16:33)
[2019-10-23] MEDS: lisinopriL 20 MG TAB PO SCH (07:42)
[2019-10-23] MEDS: AMLODIPINE BESYLATE 5 MG TAB PO SCH (07:43)
[2019-10-23] MEDS: MULTIVITAMIN TAB PO SCH (07:43)
[2019-10-23] MEDS: FOLIC ACID 1 MG TAB PO SCH (07:43)
[2019-10-23] MEDS: ESCITALOPRAM OXALATE 20 MG TAB PO SCH (07:43)
[2019-10-23] MEDS: LACTULOSE SYRUP 20 GM/30 ML UDC PO SCH ×2 (07:43→21:06)
[2019-10-23] MEDS: levETIRAcetam 500 MG TAB PO SCH ×2 (07:43→21:06)
[2019-10-23] MEDS: THIAMINE HCL 100 MG TAB PO SCH (07:43)
[2019-10-23] MEDS ORDERED: AMLODIPINE BESYLATE 5 MG TAB PO ONE ×2 (08:50→08:52)
[2019-10-23] MEDS: POTASSIUM CHLORIDE 20 MEQ TABCR PO SCH ×2 (09:35→21:07)
--- NOTE | 2019-10-23 10:01 | Hospitalist Progress Note ---
Date of Service October 23, 2019 Assessment & Plan (1) Alcohol withdrawal: 55-year-old male with history of hypertension, COPD, anxiety, alcoholism, smoking, traumatic brain injury with seizure, Presenting with alcohol withdrawal symptoms next Alcohol withdrawal, alcoholism Patient was admitted to [facility] alcohol rehab last Wednesday Noted to have symptoms of possible alcohol withdrawal Placed on alcohol drip protocol, including gabapentin taper Patient is awake alert oriented x3 today reamins with No signs of overt withdrawal Continue gabapentin taper Monitor closely Status post falls, dizziness Patient reports dizziness, described as room spinning around him, [facility], leading to multiple episodes of falls Denies any pain today, dizziness also resolved CT head: No acute process Likely multifactorial: Alcohol withdrawal, elevated ammonia, dehydration Patient on alcohol withdrawal protocol, management of elevated ammonia level, also received IV fluids -- reports dizziness is improving -- PT/OT eval in progress Abnormal LFTs, thrombocytopenia, hyperammonemia possible alcoholic cirrhosis LFTs stable, platelet count stable Ammonia level improved Continue lactulose 20 mg twice daily GI consulted, appreciate the recommendations Supportive care for now Will need outpatient liver biopsy Will need screening colonoscopy as an outpatient Follow-up with GI Dr. Ferreira in 1 to 2 weeks post discharge Allergic Rhinitis start Zyrtec and Flonase Right Great Toe skin tear start Doxycycline PO Hypertension Continue lisinopril and amlodipine Monitor closely COPD Not in exacerbation Continue to monitor Seizure disorder, history of traumatic brain injury on outpatient Keppra Rx, ? Compliance Continue Keppra 500 mg twice a day Anxiety/mood disorder Patient denies anxiety or depression symptoms Smoker Severity cessation Declines nicotine patch DVT prophylaxis. SCDs RE thrombocytopenia Full code Disposition Pending PT and OT evaluation ordered Possible return to [facility] alcohol rehab versus PT rehab tomorrow Admission and Anticipated Discharge Date Admission Date: October 21, 2019 Subjective ff up for alcohol withdrawal, elevated ammonia seen resting in chair, comfortable alert, oriented x 2 states he feels improved denies tremors, anxiety, hallucinations ambulated in the halls, no dizziness, weakness reports eyes and nose are itching, watery no other symptoms Review of Systems Review of Systems: All systems reviewed & are unremarkable except as noted in HPI & below Physical Exam Physical Exam: General- oriented x 3, not in distress, speaks in sentences with no effort or accessory muscle use Eyes- anicteric Neck- no JVD Lungs- clear breath sounds bilaterally, no rales/wheezes Heart- normal rate, regular rhythm; no murmurs Abdomen- normal bowel sounds, nondistended, soft, nontender Extremities- no pretibial edema, no calf tenderness no tremors (+) skin tear on the right great toe with some erythema Neuro- alert, oriented x 3; no gross focal neurologic deficits Skin- warm & dry Results & Data Results & Data ([facility]) Vital Signs (Past 12 Hours) Vital Signs Temp Pulse Pulse Resp BP Pulse Ox Pulse Ox 10/23/19 08:00 74 10/23/19 07:12 36.8 C 70 18 153/96 H 94 10/23/19 04:00 94 10/23/19 02:51 36.9 C 65 16 165/91 H 94 10/22/19 23:27 36.9 C 63 16 162/92 H 95 Laboratory Results Laboratory Results - last 24 hr 10/21/19 10/23/19 01:40 10:26 Sodium 133 L Potassium 3.5 Chloride 103 Carbon Dioxide 24 Anion Gap 7.0 BUN 11 D Creatinine 0.69 Est Cr Clr Drug Dosing 92.3 Est GFR ( Amer) 123.0 Est GFR (Non-Af Amer) 106.1 BUN/Creatinine Ratio 15.4 Glucose 101 H Calcium 9.3 Magnesium 1.9 U OH-Alprazolam Confrm NEGATIVE 7-Amino Clonazepam NEGATIVE Ur Nordiazepam Confirm 306 H U OH-ethylflurazepam NEGATIVE U Lorazepam Cnf GC/MS 498 H U Oxazepam Confm GC/MS 214 H Ur Temazepam Confirm 600 H U OH-Triazolam Confirm NEGATIVE U OH-Midazolam Confirm NEGATIVE U Marijuana THC Carboxy 117 H Drug Screen Comment SEE NOTE
--- NOTE | 2019-10-23 10:14 | Gastroenterology Progress Note ---
Date of Service October 23, 2019 Assessment & Plan (1) Alcohol withdrawal: (2) Abnormal LFTs: (3) Thrombocytopenia: (4) Fatty liver: 1. Continue supportive care with ETOH withdrawal treatment. 2. Reinforced alcohol cessation efforts. Patient is not interested in any inpatient or outpatient alcohol treatment programs stating "I did that before and all those places did was take my money". Admission and Anticipated Discharge Date Admission Date: October 21, 2019 Supervising Physician Co-Signing Physician Notes I personally evaluated the patient and agree with the findings as documented by [Naima Ortega, SUNIL] [YAMILEX Gardner] Exam: abd: soft, nt, nd, no HSM he would benefit from ETOH addiction treatment as an outpatient. Would also benefit from an outpatient liver biopsy and screening colonoscopy. can follow up with me in the office as an outpatient. Subjective Patient offers no specific complaints. Denies any confusion, abdominal pain, pruritus, dark urine, acholic stools and fatigue. Ammonia level has normalized. Answers all questions appropriately. Admits to heavy alcohol use of 60 beers weekly. Review of Systems Review of Systems: All systems reviewed & are unremarkable except as noted in HPI & below Physical Exam Constitutional: WD/WN, vitals as above well developed and well nourished Eyes: EOM intact bilaterally Neck: normal visual inspection Respiratory: normal respiratory effort, lungs clear to auscultation Cardiovascular: Rate/Rhythm: regular rate and regular rhythm Gastrointestinal (Abdomen): normal bowel sounds, soft, nontender, no hepatosplenomegaly Musculoskeletal: +tremor Skin: no rashes, warm and dry Psychiatric: A+Ox3, euthymic affect Results & Data Results & Data ([facility]) Vital Signs (Past 12 Hours) Vital Signs Temp Pulse Pulse Resp BP Pulse Ox Pulse Ox 10/23/19 08:00 74 10/23/19 07:12 36.8 C 70 18 153/96 H 94 10/23/19 04:00 94 10/23/19 02:51 36.9 C 65 16 165/91 H 94 10/22/19 23:27 36.9 C 63 16 162/92 H 95 PG Care Time/CCT Total # of Minutes Spent Total Time Spent with Patient: Total time spent is greater than 50% in coordination of care (as documented) at patient's floor/unit and/or counseling patient: Coding Level of Care Code 12263 Subseq Hosp Care Lvl 3 Diagnoses Alcohol withdrawal F10.239 Abnormal LFTs R94.5 Thrombocytopenia D69.6 Fatty liver K76.0
[2019-10-23 11:22] LABS: BUN Creatinine Ratio 15.4 (10-20); Calcium 9.3 mg/dl (8.5-10.1); Creatinine Clr Calc Pharmacy 92.3 ml/min; Est GFR (Non-African American) 106.1; Magnesium 1.9 mg/dl (1.8-2.4); Potassium 3.5 mmol/L (3.5-5.1)
[2019-10-23] MEDS: DOXYCYCLINE HYCLATE 100 MG CAP PO SCH ×2 (12:08→21:07)
[2019-10-23] MEDS: FLUTICASONE PROPIONATE NA SPR 16 GM BTL SCH (12:08)
[2019-10-23] MEDS: CETIRIZINE HCL 10 MG TABLET PO SCH (12:08)
[2019-10-23 13:42] LABS: 7-Aminoclonaz, Confirm NEGATIVE ng/mL (<25); Hydro-Alp Ur, GC/MS NEGATIVE ng/mL (<25); Hydroxyethylflurazepam, Conf NEGATIVE ng/mL (<50); Hydroxymidazolam Ur, GC/MS NEGATIVE ng/mL (<50); Hydroxytriazolam NEGATIVE ng/mL (<50); Lorazepam, Ur GC/MS 498 ng/mL (<50); Marijuana Quant, GCMS Urine 117 ng/mL (<5); Nordiazepam, Confirm 306 ng/mL (<50); Oxazepam Ur, GC/MS 214 ng/mL (<50); Temazepam, Confirm 600 ng/mL (<50)
[2019-10-24] MEDS: FLUTICASONE PROPIONATE NA SPR 16 GM BTL SCH (07:30)
[2019-10-24] MEDS: LACTULOSE SYRUP 20 GM/30 ML UDC PO SCH (07:30)
[2019-10-24] MEDS: lisinopriL 20 MG TAB PO SCH (07:31)
[2019-10-24] MEDS: THIAMINE HCL 100 MG TAB PO SCH (07:31)
[2019-10-24] MEDS: CETIRIZINE HCL 10 MG TABLET PO SCH (07:31)
[2019-10-24] MEDS: POTASSIUM CHLORIDE 20 MEQ TABCR PO SCH (07:31)
[2019-10-24] MEDS: DOXYCYCLINE HYCLATE 100 MG CAP PO SCH (07:31)
[2019-10-24] MEDS: FOLIC ACID 1 MG TAB PO SCH (07:31)
[2019-10-24] MEDS: levETIRAcetam 500 MG TAB PO SCH (07:31)
[2019-10-24] MEDS: ESCITALOPRAM OXALATE 20 MG TAB PO SCH (07:32)
[2019-10-24] MEDS: MULTIVITAMIN TAB PO SCH (08:32)
[2019-10-24] MEDS ORDERED: LORazepam 0.5 MG TAB ONE (08:54)
[2019-10-24] MEDS ORDERED: LORazepam 0.5 MG TAB PO SCH (09:00)
[2019-10-24] MEDS ORDERED: AMLODIPINE BESYLATE 5 MG TAB PO SCH (09:00)
--- NOTE | 2019-10-24 10:13 | Hospitalist Progress Note ---
Date of Service October 24, 2019 Assessment & Plan (1) Alcohol withdrawal: 55-year-old male with history of hypertension, COPD, anxiety, alcoholism, smoking, traumatic brain injury with seizure, Presenting with alcohol withdrawal symptoms next Alcohol withdrawal, alcoholism Patient was admitted to [facility] alcohol rehab last Wednesday Noted to have symptoms of possible alcohol withdrawal Placed on alcohol drip protocol, including gabapentin taper Patient completed gabapentin course No overt signs of DTs as an inpatient Patient prefers to go home [facility] Advised to resume usual gabapentin twice a day Advised strongly to stop alcohol consumption and encouraged to [facility] Status post falls, dizziness Patient reports dizziness, described as room spinning around him, [facility], leading to multiple episodes of falls Denies any pain today, dizziness also resolved CT head: No acute process Likely multifactorial: Alcohol withdrawal, elevated ammonia, dehydration Patient on alcohol withdrawal protocol, management of elevated ammonia level below, also received IV fluids --Symptoms resolved, PT and OT cleared patient for discharge Abnormal LFTs, thrombocytopenia, hyperammonemia possible alcoholic cirrhosis LFTs stable, platelet count stable Ammonia level improved from 49 to 32 Continue lactulose 20 mg twice daily GI consulted-Dr. Ferreira of [facility] physicians group Supportive care for now Continue lactulose 20 mg twice a day to make 2-3 bowel movements a day Will need outpatient liver biopsy Will need screening colonoscopy as an outpatient Follow-up with GI Dr. Ferreira in 1 to 2 weeks post discharge Allergic Rhinitis Started Zyrtec and Flonase Right Great Toe skin tear Continue doxycycline PO x4 more days to complete 5 days course Daily wound dressing Hypertension Not at goal, systolic BPs in the 150s Amlodipine increased from 5 to 10 mg daily Lisinopril increased from 20 to 30 mg daily Follow-up with PCP this Wednesday COPD Not in exacerbation Continue to monitor Seizure disorder, history of traumatic brain injury on outpatient Keppra Rx, ? Compliance Continue Keppra 500 mg twice a day Anxiety/mood disorder Patient denies anxiety or depression symptoms Smoker Smoking cessation advised Disposition Patient prefers to go home first apparently to get some clothing and plans to return to [facility] this afternoon Follow-up with primary care physician on Wednesday, October 27, 2019 Follow-up with [facility] vice president risk management Dr. Ferreira in 1 to 2 weeks, appointment needs to be set up Admission and Anticipated Discharge Date Admission Date: October 21, 2019 Subjective Follow-up for alcohol withdrawal, elevated ammonia level possible alcoholic liver cirrhosis Per RN Kala, patient has been anxious to be discharged today Seen resting in bed, comfortable, not in distress, oriented x3 Denies tremors, anxiety, hallucinations, confusion No headache, dizziness, chest pain, shortness of breath, abdominal pain, nausea vomiting No fevers or chills, toe pain Denies any other pain Ambulates in the hallways with no problems Patient prefers to be discharged home today rather than going back to [facility] rehab center He said he just wants to take a shower and get some clothes at home first and then return to [facility] later today Denies other symptoms States he is ready and would like to be discharged today Review of Systems Review of Systems: All systems reviewed & are unremarkable except as noted in HPI & below Physical Exam Physical Exam: General- oriented x 3, not in distress, speaks in sentences with no effort or accessory muscle use Eyes- anicteric Neck- no JVD Lungs- clear breath sounds bilaterally, no rales/wheezes Heart- normal rate, regular rhythm; no murmurs Abdomen- normal bowel sounds, nondistended, soft, nontender Extremities- no pretibial edema, no calf tenderness No tremors Neuro- alert, oriented x 3; no gross focal neurologic deficits Skin- warm & dry Results & Data Results & Data ([facility]) Vital Signs (Past 12 Hours) Vital Signs Temp Pulse Pulse Resp BP Pulse Ox 10/24/19 07:15 37.1 C 78 20 155/89 H 94 10/24/19 04:16 37.5 C 72 20 168/71 H 94 10/23/19 23:49 85 10/23/19 23:23 37.5 C 90 18 148/91 H 95 Laboratory Results Laboratory Results - last 24 hr 10/21/19 10/23/19 01:40 10:26 Sodium 133 L Potassium 3.5 Chloride 103 Carbon Dioxide 24 Anion Gap 7.0 BUN 11 D Creatinine 0.69 Est Cr Clr Drug Dosing 92.3 Est GFR ( Amer) 123.0 Est GFR (Non-Af Amer) 106.1 BUN/Creatinine Ratio 15.4 Glucose 101 H Calcium 9.3 Magnesium 1.9 U OH-Alprazolam Confrm NEGATIVE 7-Amino Clonazepam NEGATIVE Ur Nordiazepam Confirm 306 H U OH-ethylflurazepam NEGATIVE U Lorazepam Cnf GC/MS 498 H U Oxazepam Confm GC/MS 214 H Ur Temazepam Confirm 600 H U OH-Triazolam Confirm NEGATIVE U OH-Midazolam Confirm NEGATIVE U Marijuana THC Carboxy 117 H Drug Screen Comment SEE NOTE
[2019-10-24] MEDS ORDERED: lisinopriL 10 MG TAB PO STA (10:19)
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
[2019-10-24] MEDS ORDERED: GABAPENTIN 600 MG TAB PO SCH (18:00)
== END 2019-10-24 11:03 | disposition home or self-care (01) | DRG 897 ==
LOC: ED 00:04 → 2S 03:28